=== PATIENT | female | born 1940 | race Caucasian/White ===

== ENCOUNTER 2020-11-07 14:03 | Observation (INO) ==
[2020-11-07] MEDS ORDERED: Morphine Sulfate 2 MG/ML SYRINGE IVP ONE (15:22)
[2020-11-07] MEDS ORDERED: Isovue-370 500 ML BOTTLE IVP ONE (15:22)
[2020-11-07] MEDS ORDERED: Ondansetron 4 MG/2 ML VIAL IVP ONE (15:22)
[2020-11-07] MEDS ORDERED: 0.9 % Sodium Chloride 1,000 ML IVC ONE (15:22)
[2020-11-07 15:47] LABS: Bacteria,Urine Moderate per hpf (None-Few); Bilirubin,Urine Negative (Negative); Blood,Urine Moderate (Negative); Clarity,Urine Turbid (Clear); Color,Urine Yellow (Yellow); Glucose,Urine (UA) Normal (Normal); Ketones,Urine Negative (Negative); Leukocyte Esterase,Urine Moderate (Negative); Mucus,Urine Few per lpf (None-Few); Nitrite,Urine Positive (Negative); PH,Urine 6.5 pH Units (5.0-8.0); Protein,Urine 30 mg/dL (Neg-Trace); Specific Gravity,Urine 1.017 (1.010-1.025); Squamous Epithelial Cell,Urine Few per hpf (None-Few); Urobilinogen,Urine Normal (Normal); WBC,Urine 50-100 per hpf (0-3)
[2020-11-07] MEDS ORDERED: cefTRIAXone 1,000 MG in Water for inj. (sterile) 10 ML IVP ONE (15:57)
[2020-11-07 16:08] LABS: Basophils # 0.1 K/mcL (0.0-0.2); Eosinophils # 0.1 K/mcL (0.0-0.6); Hematocrit 37.9 % (35.3-44.9); Hemoglobin 12.1 g/dL (11.5-15.4); Immature Granulocytes % 1.4 % (0-4); Lymphocytes # 1.1 K/mcL (0.6-4.6); Lymphocytes % 15.4 %; Mean Corpuscular HGB Conc 31.9 g/dL (31.6-35.5); Mean Corpuscular Volume 90.9 fL (83.0-100.0); Mean Platelet Volume 10.4 fL (9.4-12.4); Monocytes # 0.7 K/mcL (0.0-1.3); Monocytes % 10.1 %; Nucleated Red Blood Cells 0.3 /100 WBC (0); Platelet Count 215 K/mcL (140-400); Red Blood Count 4.17 M/mcL (3.82-4.97); Red Cell Distribution Width 15.4 % (11.5-14.5); Segmented Neutrophils % 70.1 %; White Blood Count 7.1 K/mcL (4.3-11.1)
[2020-11-07 16:27] LABS: Alanine Aminotransferase 30 Units/L (7-52); Albumin 3.9 g/dL (3.5-5.7); Albumin/Globulin Ratio 1.2 (1.1-2.2); Alkaline Phosphatase 115 Units/L (34-104); Aspartate Amino Transferase 71 Units/L (13-39); BUN/Creatinine Ratio 12 (6-26); Bilirubin,Total 0.7 mg/dL (0.3-1.0); Blood Urea Nitrogen 12 mg/dL (8-23); Calcium 10.4 mg/dL (8.6-10.3); Carbon Dioxide 29 mEq/L (23-29); Chloride 97 mEq/L (98-107); Globulin 3.2 g/dL (2.4-3.5); Glucose 131 mg/dL (70-105); Lipase 7 Units/L (11-82); Osmolality,Calculated 282 (280-300); Potassium 4.5 mEq/L (3.5-5.1); Sodium 135 mEq/L (136-145); Total Protein 7.1 g/dL (6.4-8.9); Troponin I 0.03 ng/mL (< 0.04); eGFR For African Americans > 60 (> 60); eGFR For Non-African Americans 51 (> 60)
[2020-11-07] MEDS ORDERED: Ondansetron 4 MG/2 ML VIAL IVP PRN (18:17)
[2020-11-07] MEDS ORDERED: Naloxone 0.4 MG/ML INJ IVP PRN (18:17)
[2020-11-07] MEDS ORDERED: Acetaminophen 325 MG TABLET PO PRN (18:17)
[2020-11-07] MEDS ORDERED: *HR* OxyCODONE Immed Rel 5 MG TABLET PO PRN (18:17)
[2020-11-07] MEDS: 0.9 % Sodium Chloride 1,000 ML IVC SCH (20:45)
[2020-11-08] MEDS ORDERED: *HR* Enoxaparin 40 MG/0.4 ML SYRINGE SQ SCH (06:00)
[2020-11-08] MEDS: 0.9 % Sodium Chloride 1,000 ML IVC SCH ×2 (06:21→08:53)
[2020-11-08] MEDS ORDERED: cefTRIAXone 1,000 MG in Water for inj. (sterile) 10 ML IVP SCH (09:00)
[2020-11-08 11:55] VITALS: BP 124/63
[2020-11-08] MEDS ORDERED: Sennosides 8.6 MG TABLET PO SCH (13:30)
[2020-11-08] MEDS ORDERED: polyethylene glycoL 3350 17 GM POWD.PACK PO SCH (13:30)
== END 2020-11-08 15:19 | disposition home health service (06) ==
LOC: 3ANU 14:03 → EMEROOARM 14:03 → SUATTDRO 18:15 → 3ANU 19:53
PROVIDERS: ADMIT Internal Medicine; ATTEND Internal Medicine